=== PATIENT | male | born 1955 ===

== ENCOUNTER 2024-05-27 05:30 | Day surgery (SDC) | payer OTHER ==
[2024-05-22 12:38] VITALS: BP 160/73
[~2024-05-27] VITALS: Ht 172.7 cm; Wt 87.5 kg
[~2024-05-27 05:30] MED LIST: COZAAR100 MG PO; NEXIUM 24HR20 MG PO; ROSUVASTATIN CAL5 MG PO; TENORMIN100 M1 PO; ZYRTEC10 M3 PO
[2024-05-27] MEDS ORDERED: METRONIDAZOLE/SODIUM CHLORIDE 500 MG/100 ML PIGGYBACK IV ONE (10:11)
[2024-05-27] MEDS ORDERED: DIBUCAINE 30 GM TUBE ONE (10:29)
[2024-05-27] MEDS ORDERED: HEMOSTATIC MATRIX 1 KIT KIT TOP ONE (10:29)
[2024-05-27] MEDS ORDERED: POVIDONE-IODINE 118 ML BOTT TOP ONE ×2 (10:29→14:50)
[2024-05-27] MEDS ORDERED: BUPIVACAINE HCL/MPF 0.5% 30ML VIAL ONE (10:30)
[2024-05-27] MEDS ORDERED: LIDOCAINE HCL 1%/EPINEPHRINE 20ML VIAL IJ ONE (10:30)
[2024-05-27] MEDS ORDERED: levoFLOXacin IN DEXTROSE 5 % 5 MG/ML PIGGYBAG IV ONE (11:15)
[2024-05-27] MEDS ORDERED: NEURONTIN300 MG PO (11:43)
[2024-05-27] MEDS ORDERED: INTESTINEX680 M1 PO (11:44)
[2024-05-27] MEDS ORDERED: BUPIVACAINE LIPOSOME/PF 266 MG/20 ML VIAL IJ ONE (14:39)
== END 2024-05-27 17:30 | disposition home or self-care (01) ==
LOC: CIR.AMB 05:30
PROVIDERS: ATTEND Surgery
DX: K64.3 Fourth degree hemorrhoids (principal); K62.5 Hemorrhage of anus and rectum; Z88.5 Allergy status to narcotic agent; Z88.6 Allergy status to analgesic agent; Z91.041 Radiographic dye allergy status; I10 Essential (primary) hypertension; K62.89 Other specified diseases of anus and rectum